=== PATIENT | female | born 1990 | race African-American/Black ===

== ENCOUNTER 2017-01-07 15:00 | Inpatient (IN) | payer OTHER ==
--- NOTE | ~2017-01-07 | PA ---
Unit #: [id number] #: [id number] Patient: FREDO BUTTS [id number] [facility] [address] [place] [address] [id number] I MR#: [id number] NAME: FREDO BUTTS ROOM: P206 Age: 26 Sex: F Admission Date: 01/07/2017 : 1990 Date of Assessment: 01/08/2017 Attending Physician: Flako Moreno M.D. Admitting Physician: Flako Moreno M.D. Primary Care Physician: Primary Care Physician No PSYCHIATRIC ASSESSMENT IDENTIFYING INFORMATION The patient is a 26-year-old female with a history of cocaine, cannabis abuse and depressed mood admitted with positive suicidal ideation. CHIEF COMPLAINT Just didn't want to be here. INFORMANT(S) The patient, reliability is good. HISTORY OF PRESENT ILLNESS The patient is a 26-year-old female who reports a long history of abuse of cocaine and cannabis. The patient has an open CPS case related to her ongoing substance use and was in fact in "[facility]" during her three years ago. The patient's [id number] child is currently in the custody of her aunt. The patient reports that she also uses alcohol. The patient reports that she has been on antidepressant medication in the past but does not recall the name of that medication. She is tearful and dysphoric during today's interview but is reporting some reduction in suicidal ideation and is less hopeless. She does complain of poor sleep and extreme anxiety. PAST PSYCHIATRIC HISTORY As above. PAST MEDICAL HISTORY Noncontributory. MEDICATIONS None. ALLERGIES None. FAMILY HISTORY the patient reports an extensive family history of alcohol abuse. SOCIAL HISTORY The patient is currently living alone. She had previously worked as [employer] but is presently unemployed. She reports substance use as noted previously and is a smoker. Unit #: [id number] #: [id number] Patient: FREDO BUTTS MENTAL STATUS EXAMINATION At this time reveals the patient to be a well-developed, well-nourished female appearing her stated age. She is in no apparent physical distress at the time of examination. She is awake, alert, and oriented in all spheres. Her mood is dysphoric and tearful. Her affect congruent. Speech is generally relevant and coherent. There are no gross deficits in memory or cognition noted. Intelligence is judged to be in the average range based on fund of knowledge. The patient is cooperative throughout the interview. She is currently endorsing positive suicidal ideation. She denies homicidal ideation. She denies any psychotic symptoms. Her judgement and insight appear to be intact. ASSETS AND LIABILITIES ASSETS: Motivation for change. LIABILITIES: Lack of resources. DIAGNOSTIC IMPRESSION Cocaine use disorder Alcohol use disorder Dysthymic disorder Cannabis use disorder TREATMENT PLAN The patient remains hospitalized for safety and stabilization. A routine detoxification protocol for alcohol has been initiated. The patient will participate in appropriate [facility] and milieu activities and suicidal precautions remain in place. I will begin Zoloft 25 mg daily to address depressive symptoms and we will add p.r.n. Trazodone and vistaril. The patient is generally warned regarding the deleterious effect of ongoing abuse of cocaine will have on her recovery. She is expressing interest in intensive outpatient programming. ESTIMATED LENGTH OF STAY Three to five days. Dictated by... Flako Moreno M.D. JENNIFER/christelle TD: 01/09/2017 01:03 JOB #: [id number] PSYCHIATRIC ASSESSMENT Page 1 of 1 X Flako Moreno MD X PSYCHIATRIC ASSESSMENT
--- NOTE | ~2017-01-07 | HP ---
Unit #: [id number] #: [id number] Patient: FREDO BUTTS [id number] [place] [address] [id number] I MR#: [id number] NAME: FREDO BUTTS ROOM: P206 Age: 26 Sex: F Admission Date: 01/07/2017 : 1990 Attending Physician: Flako Moreno M.D. Admitting Physician: Flako Moreno M.D. Primary Care Physician: Primary Care Physician No HISTORY AND PHYSICAL HISTORY OF PRESENT ILLNESS Fredo is a 26 year old admitted to [address] [place] [address] because of her abuse of alcohol and reported illicit drug use. PAST MEDICAL HISTORY 1. Long history of alcohol abuse. 2. History of illicit substance abuse to include snorting heroin and crack cocaine. 3. Morbid obesity. PAST SURGICAL HISTORY Nothing reported. ALLERGIES No known drug allergies. SOCIAL HISTORY Smokes one pack per day. Drinks a fifth of liquor on a daily basis. Admits to a history of illicit substance abuse. FAMILY HISTORY Medically noncontributory. REVIEW OF SYSTEMS CONSTITUTIONAL: No fever or chills. HEENT: Denies any sore throat, ear pain or runny nose. CARDIOVASCULAR: Denies chest pain, irregular heart rhythm or palpitations. CHEST: Denies shortness of breath or cough. No hemoptysis. GASTROINTESTINAL: Denies nausea, vomiting, diarrhea or chronic constipation. ENDOCRINE: Denies history of increased thirst or urination. No recent significant weight loss or gain. GENITOURINARY: Denies dysuria, frequency, or hematuria. SKIN: Denies any rashes. HEMATOLOGIC: Denies history of increased bleeding or bruising. MUSCULOSKELETAL: Denies any hot, swollen joints. No generalized muscle pain. NEUROLOGIC: Denies problems with vision or speech. No frequent, severe headaches. No numbness, tingling or weakness in any extremities. Denies loss of bladder or bowel control. CURRENT MEDICATIONS Unit #: [id number] #: [id number] Patient: FREDO BUTTS Detox protocol PHYSICAL EXAMINATION GENERAL: Alert, well-nourished, in no apparent distress. VITAL SIGNS: Blood pressure 130/82, heart rate 64, respirations 16, temperature 98.6. WEIGHT: 215 pounds. HEIGHT: 5'7". SKIN: Warm and dry without rash or lesion. HEENT: Normocephalic. TMs not viewed. Oral and nasal passages clear. Conjunctivae clear. Pupils equal, round and reactive to light and accommodation. Extraocular movements intact. NECK: Supple without lymphadenopathy or thyromegaly. HEART: Regular rate and rhythm without murmur. LUNGS: Clear. ABDOMEN: Soft, nontender. : Not done. EXTREMITIES: No evidence of cyanosis, clubbing or edema. Moves all extremities without focal deficit. NEUROLOGICAL: Grossly within normal limits. Cranial Nerves: II: Visual field are intact. III, IV AND : Extraocular movements are intact. Pupils are equal, round and reactive to light. V: Facial sensation is grossly normal. VII: Facial movements and expression are normal. VIII: Auditory acuity grossly intact. IX, X: Uvula is midline. Phonation is normal. XI: Patient shrugs shoulders and turns head normally. XII: Tongue protrudes in the midline. Sensory and Motor Function: Sensory and motor sensation is grossly normal. Motor: moves all extremities well. Coordination: Gait is normal. Deep Tendon Reflexes: Intact. IMPRESSION Psychiatric admission RECOMMENDATIONS PSYCHIATRIC: Per psychiatrist. MEDICAL: I see no contraindications to participating in facility's activities. MEDICAL PROGNOSIS Good. MEDICAL CONDITION Stable. Dictated by... Carole Winters PVeraAVera-Raghav. for Etienne Aldana/christelle TD: 01/08/2017 23:36 JOB #: [id number] Unit #: [id number] #: [id number] Patient: FREDO BUTTS HISTORY AND PHYSICAL Page 1 of 1 X Carole Winters HISTORY AND PHYSICAL
--- NOTE | ~2017-01-07 | DS ---
Unit #: [id number] #: [id number] Patient: FREDO BUTTS [id number] [place] [address] [id number] MR#: [id number] NAME: FREDO BUTTS ROOM: [facility] [place][Note 2] Age: 26 Sex: F Admission Date: 01/07/2017 : 1990 Discharge Date: 01/09/2017 Attending Physician: Flako Moreno M.D. Primary Care Physician: Primary Care Physician No DISCHARGE SUMMARY REASON FOR ADMISSION The patient is a 26-year-old female admitted to the [address] [place] [address] Unit related to a history of depressed mood and abuse of alcohol and marijuana. HOSPITAL COURSE The patient was admitted to the [address] [place] [address] Unit and placed on routine detoxification protocol for alcohol. Her stay in the hospital was an uneventful one. By 09/11, the patient was in brighter spirits and denied suicidal or homicidal ideation. She requested discharge with a plan to follow up in a chemical dependence intensive outpatient program. During her stay in the hospital, the patient was started on Zoloft 25 mg daily for depression as well as p.r.n. Vistaril 50 mg q. 6 hours p.r.n. anxiety and trazodone 50 mg at h.s. p.r.n. insomnia. FINAL DIAGNOSES 1. Alcohol use disorder. 2. Dysthymic disorder. DISPOSITION ON DISCHARGE The patient was discharged on the following medications: 1. Zoloft 25 mg daily for depression. 2. Vistaril 50 mg q. 6 hours p.r.n. anxiety. 3. Trazodone 50 mg at h.s. p.r.n. insomnia. DIET AND ACTIVITY No dietary or physical restrictions placed on the patient at the time of discharge. FOLLOWUP Followup will take place through the auspices of the chemical dependence intensive outpatient program and community mental health resources. PROGNOSIS Considered fair. Dictated by... Etienne Poole Unit #: [id number] #: [id number] Patient: FREDO BUTTS TD: 01/09/2017 14:01 JOB #: [id number] DISCHARGE SUMMARY Page 1 of 1 X Flako Moreno MD DISCHARGE SUMMARY
[2017-01-08 09:42] LABS: BASOPHIL% 0.4 % (0-2.5); EOSINOPHIL# 0.1 X10e3 (0-0.7); EOSINOPHIL% 1.1 % (0.0-7.0); HEMATOCRIT 40.5 % (35.0-45.0); HEMOGLOBIN 13.5 gm/dL (12.0-16.0); LYMPHOCYTE# 2.5 X10e3 (1.0-3.5); LYMPHOCYTE% 50.5 % (17.0-45.0); MEAN CELL VOLUME 100.5 FL (83-96); MEAN CORPUSCULAR HEMOGLOBIN 33.5 PG (28-34); MEAN CORPUSCULAR HGB CONC 33.4 g/dL (30-36); MEAN PLATELET VOLUME 9.9 FL (6.5-11.5); MONOCYTE# 0.4 X10e3 (0-1.0); PLATELET COUNT 201 X10e3 (140-420); RED BLOOD COUNT 4.03 X10e (3.90-5.30); RED CELL DISTRIBUTION WIDTH 12.9 % (11.0-15.5)
[2017-01-08 09:43] LABS: DIFF IND YES
[2017-01-08 10:18] LABS: PLATELET ESTIMATE NORMAL (NORMAL); RBC NORMAL YES
[2017-01-08 10:24] LABS: ALBUMIN SERUM 3.3 g/dL (3.5-5.0); BILIRUBIN,TOTAL 0.6 mg/dL (0.2-2.0); BUN/CREATININE RATIO 10.9; CALCIUM SERUM 9.1 mg/dL (8.4-10.2); CREATININE SERUM 1.1 mg/dL (0.6-1.4); GLOM FILT RATE Estimated 79.7 mL/min (>60)
== END 2017-01-09 15:00 | DRG 897 ==
LOC: P2S 16:36
PROVIDERS: Specialist
PROC: HZ2ZZZZ Detoxification Services for Substance Abuse Treatment (ICD-10-PCS; principal; 2017-01-07)
DX: F14.20 Cocaine dependence, uncomplicated (principal); E66.01 Morbid (severe) obesity due to excess calories; F10.20 Alcohol dependence, uncomplicated; F34.1 Dysthymic disorder; F12.20 Cannabis dependence, uncomplicated; F41.9 Anxiety disorder, unspecified; F32.9 Major depressive disorder, single episode, unspecified; G47.00 Insomnia, unspecified
CPT/HCPCS: 80053; 84703; 85025; 86592